=== PATIENT | female | born 2000 | race Caucasian/White ===

== ENCOUNTER 2021-04-01 18:21 | Emergency (ER) | payer OTHER ==
[2021-04-01] MEDS ORDERED: HYDROcodone/APAP 5/325 MG 1 TAB TAB ONE (20:00)
--- NOTE | 2021-04-01 21:22 | NUR ---
d/c with [facility]. d/c education given. opportunity to ask questions given and answered. rx of naprosyn given.
[2021-04-01 21:23] VITALS: BP 139/71
== END 2021-04-01 21:22 | disposition home or self-care (01) ==
LOC: MED 18:21
DX: R07.9 Chest pain, unspecified (principal); W19.XXXA Unspecified fall, initial encounter; Y93.89 Activity, other specified; Y92.89 Other specified places as the place of occurrence of the external cause; Y99.8 Other external cause status
CPT/HCPCS: 71101; 99283